=== PATIENT | male | born 1975 | race Caucasian/White ===

== ENCOUNTER 2017-10-19 17:17 | Inpatient (IN) ==
[2017-10-19] MEDS ORDERED: *HR* Morphine 2 MG/ML SYRINGE IVP ONE (17:43)
[2017-10-19] MEDS ORDERED: 0.9 % Sodium Chloride 1,000 ML IVC ONE (17:43)
[2017-10-19] MEDS ORDERED: Ondansetron 4 MG/2 ML VIAL IVP ONE (17:43)
--- NOTE | 2017-10-19 17:46 | Emergency Department Note ---
Disposition Clinical Impression: Diverticulitis Disposition: Admitted As Inpatient Condition: Good Referrals: NONE,PCP [Primary Care Provider] - Forms: ED Satisfaction Letter, Work/School Release Time of Disposition: 19:50 Abdominal Pain HPI - General Chief Complaint: ED Abdominal Pain Stated Complaint: got diverticulitis Time Seen by Provider: 10/19/17 17:40 Source: patient Mode of arrival: ambulatory Limitations: no limitations Nursing Notes Reviewed: Yes Vital Signs Reviewed: Yes - History of Present Illness HPI Narrative: 42-year-old white male with a history of diverticulitis presents with left lower quadrant abdominal pain that started on Thursday. He developed nausea and vomiting on Thursday. He vomited multiple times and chest today. He felt chilled, no documented fever. He has had a previous history of diverticulitis about 5 or 6 months ago. He has had a previous cholecystectomy and appendectomy. He had a normal bowel movement 2 days ago. No diarrhea. Pt Subjective Complaint: abdominal pain Onset (ago): day(s) (2) Consistency: constant Location: LLQ Pain Severity: severe Pain Scale: 9 Quality: sharp Radiation: none Migration to: no migration Improves with: nothing Worsens with: nothing Context: other (History of diverticulitis) Associated symptoms: Reports: nausea, vomiting Treatments prior to arrival: none - Related Data Home Medications Medication Instructions Recorded Confirmed No Known Home Drugs 10/19/17 10/19/17 Allergies Allergy/AdvReac Type Severity Reaction Status Date / Time No Known Allergies Allergy Verified 08/06/17 10:14 All systems ED: reviewed and negative except as stated. Constitutional: Reports: chills. Denies: fever Cardiovascular: Denies: chest pain Respiratory: Denies: cough, dyspnea Gastrointestinal: Reports: abdominal pain, nausea, vomiting. Denies: diarrhea, constipation Genitourinary: Denies: urgency, dysuria, frequency Musculoskeletal: Denies: back pain Abdominal Pain PMH - Past Medical History Medical history: Reports: kidney stones Male Surgical History: Reports: appendectomy, cholecystectomy Psychiatric history: Reports: no psych history - Social History Smoking status: Never smoker Alcohol use: Reports: none Drug use: Reports: none Physical Exam - General Limitations: no limitations General appearance: alert, in no apparent distress - Head Head exam: atraumatic, normocephalic - Eye Eye exam: Present: PERRL, EOMI. Absent: scleral icterus, conjunctival injection - ENT ENT exam: normal oropharynx, mucous membranes moist, TM's normal bilaterally - Neck Neck exam: Present: normal inspection, full ROM, trachea midline. Absent: lymphadenopathy - Respiratory Respiratory exam: Present: normal lung sounds bilaterally. Absent: respiratory distress, wheezes - Cardiovascular Cardiovascular exam: Present: regular rate, normal rhythm, normal heart sounds - Abdominal Exam Abdominal exam: Present: soft, tenderness, guarding, normal bowel sounds. Absent: distention, rebound, organomegaly, mass Abdominal tenderness: Present: LLQ, moderate - Extremities Exam Extremities exam: Present: normal inspection, full ROM, normal capillary refill. Absent: tenderness - Neurological Exam Neurological exam: Present: alert, oriented X3, normal gait - Psychiatric Psychiatric exam: Present: normal affect, normal mood - Skin Skin exam: Present: warm, dry, intact, normal color Course - Reevaluation(s) Reevaluation #1: Patient's nausea is improved. His tenderness and pain have decreased. He has uncomplicated diverticulitis on the CT. His white blood cell count is mildly elevated. I feel he will benefit from IV antibiotic therapy to make sure he can tolerate by mouth. I discussed with the patient. He is agreeable. I spoke with Dr. Jimenez. He has accepted patient for observation admission. Time: 19:50 Vital Signs Temperature 98.3 F 10/19/17 17:17 Pulse Rate 82 10/19/17 17:17 Respiratory Rate 16 10/19/17 17:17 Blood Pressure 145/101 10/19/17 17:17 O2 Sat by Pulse Oximetry 99 10/19/17 17:17 Temperature 98.3 F 10/19/17 17:17 Pulse Rate 93 10/19/17 19:24 Respiratory Rate 18 10/19/17 19:24 Blood Pressure 124/82 10/19/17 19:24 O2 Sat by Pulse Oximetry 98 10/19/17 19:24 Oxygen Delivery Oxygen Delivery Room Air Abdominal Pain - MDM Narrative Medical decision making narrative: Differential includes but is not limited to inguinal hernia, diverticulitis, pyelonephritis, ureterolithiasis, small bowel obstruction, urinary tract infection. - Medical Records Medical records reviewed: Yes I reviewed the patient's medical records. - Lab Data Lab results reviewed: Yes I reviewed the patient's lab results. Result diagrams: 10/19/17 17:51 10/19/17 17:51 Lab Results 10/19/17 10/19/17 Range/Units 17:51 17:51 WBC 11.3 H (4.3-11.1) K/mcL RBC 4.76 (4.19-5.50) M/mcL Hgb 15.1 (12.9-16.9) g/dL Hct 41.7 (37.5-50.1) % MCV 87.6 (83.0-100.0) fL MCH 31.7 (28.0-33.3) pg MCHC 36.2 H (31.6-35.5) g/dL RDW 11.3 L (11.5-14.5) % Plt Count 273 (140-400) K/mcL MPV 10.9 (9.4-12.4) fL Immature Gran % 0.4 (0-4) % Seg Neutrophils % 84.4 % Lymphocytes % 8.7 % Monocytes % 4.1 % Eosinophils % 1.9 % Basophils % 0.5 % Neutrophils # 9.5 H (1.6-8.9) K/mcL Lymphocytes # 1.0 (0.6-4.6) K/mcL Monocytes # 0.5 (0.0-1.3) K/mcL Eosinophils # 0.2 (0.0-0.6) K/mcL Basophils # 0.1 (0.0-0.2) K/mcL Sodium 145 (136-145) mEq/L Potassium 4.0 (3.5-4.5) mEq/L Chloride 110 H (98-109) mEq/L Carbon Dioxide 25 (19-29) mEq/L BUN 13 (8-26) mg/dL Creatinine 0.93 (0.72-1.25) mg/dL Est GFR ( Amer) > 60 (> 60) Est GFR (Non-Af Amer) > 60 (> 60) BUN/Creatinine Ratio 14 (6-26) Glucose 98 (70-99) mg/dL Calculated Osmolality 300 (280-300) Calcium 9.5 (8.6-10.8) mg/dL Total Bilirubin 0.5 (0.2-1.2) mg/dL AST 20 (5-34) Units/L ALT 20 (0-55) Units/L Alkaline Phosphatase 80 (38-126) Units/L Serum Total Protein 7.5 (6.0-8.3) g/dL Albumin 3.7 (3.5-5.0) g/dL Globulin 3.8 H (2.4-3.5) g/dL Albumin/Globulin Ratio 1.0 L (1.1-2.2) Lipase 27 (8-78) Units/L - Radiology Data Radiology results reviewed: Yes I reviewed the patient's radiology results. Impressions Abdomen/Pelvis CT 10/19/17 17:43 IMPRESSION: 1. Diverticulosis with early developing uncomplicated diverticulitis involving the sigmoid colon. 2. Bilateral punctate nonobstructive urolithiasis. D/ / Maikel Marlow MD / Maikel Marlow MD Interpreting Provider: Maikel Marlow MD
[2017-10-19 18:08] LABS: Basophils # 0.1 K/mcL (0.0-0.2); Basophils % 0.5 %; Eosinophils # 0.2 K/mcL (0.0-0.6); Eosinophils % 1.9 %; Hematocrit 41.7 % (37.5-50.1); Hemoglobin 15.1 g/dL (12.9-16.9); Immature Granulocytes % 0.4 % (0-4); Lymphocytes % 8.7 %; Mean Corpuscular HGB Conc 36.2 g/dL (31.6-35.5); Mean Corpuscular Hemoglobin 31.7 pg (28.0-33.3); Mean Corpuscular Volume 87.6 fL (83.0-100.0); Mean Platelet Volume 10.9 fL (9.4-12.4); Monocytes # 0.5 K/mcL (0.0-1.3); Monocytes % 4.1 %; Neutrophils # 9.5 K/mcL (1.6-8.9); Platelet Count 273 K/mcL (140-400); Red Blood Count 4.76 M/mcL (4.19-5.50); Red Cell Distribution Width 11.3 % (11.5-14.5); Segmented Neutrophils % 84.4 %
[2017-10-19 18:32] LABS: Alanine Aminotransferase 20 Units/L (0-55); Albumin 3.7 g/dL (3.5-5.0); Alkaline Phosphatase 80 Units/L (38-126); Aspartate Amino Transferase 20 Units/L (5-34); BUN/Creatinine Ratio 14 (6-26); Bilirubin,Total 0.5 mg/dL (0.2-1.2); Blood Urea Nitrogen 13 mg/dL (8-26); Calcium 9.5 mg/dL (8.6-10.8); Carbon Dioxide 25 mEq/L (19-29); Chloride 110 mEq/L (98-109); Globulin 3.8 g/dL (2.4-3.5); Glucose 98 mg/dL (70-99); Lipase 27 Units/L (8-78); Osmolality,Calculated 300 (280-300); Sodium 145 mEq/L (136-145); Total Protein 7.5 g/dL (6.0-8.3); eGFR For African Americans > 60 (> 60); eGFR For Non-African Americans > 60 (> 60)
[2017-10-19] MEDS ORDERED: *HR* Morphine 2 MG/ML SYRINGE ONE (18:38)
[2017-10-19] MEDS ORDERED: MetroNIDAZOLE 500 MG/100 ML 500 MG/100 ML BAG IVPB ONE (19:31)
[2017-10-19] MEDS ORDERED: *HR* Morphine 2 MG/ML SYRINGE IVP PRN ×2 (19:46→20:31)
[2017-10-19] MEDS ORDERED: Naloxone 0.4 MG/ML INJ IVP PRN (20:31)
[2017-10-19] MEDS: 0.9 % Sodium Chloride 1,000 ML IVC SCH (21:58)
[2017-10-20] MEDS: *HR* Morphine 2 MG/ML SYRINGE IVP PRN ×9 (00:01→22:57)
[2017-10-20] MEDS: MetroNIDAZOLE 500 MG/100 ML 500 MG/100 ML BAG IVPB SCH ×4 (04:36→12:47)
[2017-10-20] MEDS: *HR* Enoxaparin 40 MG/0.4 ML SYRINGE SQ SCH (06:14)
[2017-10-20] MEDS: 0.9 % Sodium Chloride 1,000 ML IVC SCH (06:21)
--- NOTE | 2017-10-20 12:45 | Internal Med History&Physical ---
Date of Encounter: 10/20/17 Time of Encounter: 12:25 Assessment and Plan (1) Diverticulitis Current visit: Yes Status: Acute He has been started on IV Cipro and Flagyl. Diet will be increased as tolerated. Internal Medicine - H&P: HPI Chief complaint: Abdominal pain, vomiting, diarrhea Admitted From: Emergency Dept Plans for Post Hospital Care: Home History of present illness: Mr. Linton is a 42 year old male who came to the hospital stating he had onset of abdominal pain approximately one week earlier. He had vomiting and diarrhea onset October 17. There was no visible blood. He had no significant fevers or chills. He was evaluated in emergency room with CT scan showing probable early uncomplicated diverticulitis. He was admitted to [facility] floor for ongoing care needs. He reports several previous episodes of diverticulitis. He was hospitalized at [facility] June 2017 with colitis following treatment for diverticulitis. He has not seen a ski guide states he has an appointment November [address] Santiago. He denies colonoscopy or barium enema. He denies disorders of his liver or exocrine pancreas. He has had cholecystectomy and appendectomy. Past Med Surg Social Fam HX - Past Medical History Medical history: kidney stones Psychiatric history: no psych history - Past Surgical History Surgical History: appendectomy, cholecystectomy - Social History Smoking Status: Never smoker Smokeless Tobacco Status: No Alcohol use: none Drug use: none - Family History Mother Living Status: Still Living Father Living Status: Hx Family Respiratory Disorders: Yes (copd, emphysema) Hx Family Cancer: Yes Internal Medicine - H&P: Meds No Known Home Drugs 10/19/17 [History] 3 Allergy/AdvReac Type Severity Reaction Status Date / Time No Known Allergies Allergy Verified 08/06/17 10:14 All Systems PM: A 10-system review of systems was performed and is negative for pertinent findings except as documented above in the HPI. Review of systems: Gen.: His weight has decreased from 77.111 kg on 07/03/2017 to 72.575 kg now. This is unintentional. Cardiovascular: He denies [place] hypertension heart failure angina DVT or pulmonary embolus Respiratory: He states he is a lifelong nonsmoker and has no known chronic lung disease GI: As per history of present illness : He had kidney stones approximately 2012. He denies other kidney bladder or prostate disorders Neurologic: He denies large distribution strokes or seizures. Endocrine: He denies diabetes thyroid disease or hyperlipidemia Hematology/oncology: He denies blood disorders cancers or anemia Psychiatric: He denies anxiety depression or other mental health issues [place] skeletal: He denies arthritis gout other bone joint or muscle disorders. - Constitutional Vitals: Temp Pulse Resp BP Pulse Ox 98.4 F 52 16 104/71 96 10/20/17 11:48 10/20/17 11:48 10/20/17 11:48 10/20/17 11:48 10/20/17 11:48 Exam: Gen.: He is a well-developed well-nourished male lying in bed who appears in mild pain HEENT: Head is atraumatic and normal systolic. Eyes: EOMI. There is no scleral icterus. Mouth: Mucosa is moist. Neck: Supple and nontender. There is no thyromegaly or adenopathy noted. Heart: Regular without murmurs gallops or ectopics Lungs: No wheezes or crackles heard. Abdomen: He has tenderness in the left lower quadrant to mild palpation. No masses or guarding noted. Extremities: There is no cyanosis edema or clubbing noted. Dorsalis pedis and posttibial pulses are 1-2 over 2 bilaterally. Neurologic: Mental status: He is talkative and a good historian. Cranial nerves : Smile is symmetric. Forehead wrinkles bilaterally. Tongue protrudes midline. EOMI. Motor: There is no pronator drift. Cerebellar: Finger to nose is intact bilaterally. Skin: Warm and dry Internal Med - H&P Results - Labs CBC & Chem 7: 10/19/17 17:51 10/19/17 17:51
[2017-10-20] MEDS: Ondansetron 4 MG/2 ML VIAL IVP PRN ×2 (14:01→21:06)
[2017-10-21] MEDS: *HR* Morphine 2 MG/ML SYRINGE IVP PRN ×10 (00:57→23:09)
[2017-10-21] MEDS: MetroNIDAZOLE 500 MG/100 ML 500 MG/100 ML BAG IVPB SCH ×4 (03:26→21:04)
[2017-10-21 06:04] LABS: Basophils # 0.1 K/mcL (0.0-0.2); Eosinophils # 0.4 K/mcL (0.0-0.6); Eosinophils % 7.7 %; Hematocrit 37.7 % (37.5-50.1); Hemoglobin 13.4 g/dL (12.9-16.9); Immature Granulocytes % 0.2 % (0-4); Lymphocytes # 1.2 K/mcL (0.6-4.6); Lymphocytes % 22.8 %; Mean Corpuscular HGB Conc 35.5 g/dL (31.6-35.5); Mean Corpuscular Hemoglobin 31.3 pg (28.0-33.3); Mean Corpuscular Volume 88.1 fL (83.0-100.0); Monocytes # 0.4 K/mcL (0.0-1.3); Monocytes % 8.4 %; Neutrophils # 3.1 K/mcL (1.6-8.9); Platelet Count 233 K/mcL (140-400); Red Blood Count 4.28 M/mcL (4.19-5.50); Red Cell Distribution Width 11.4 % (11.5-14.5); Segmented Neutrophils % 59.9 %
[2017-10-21 06:24] LABS: BUN/Creatinine Ratio 10 (6-26); Blood Urea Nitrogen 9 mg/dL (8-26); Calcium 8.9 mg/dL (8.6-10.8); Carbon Dioxide 26 mEq/L (19-29); Chloride 110 mEq/L (98-109); Glucose 83 mg/dL (70-99); Magnesium 2.1 mg/dL (1.6-2.6); Osmolality,Calculated 296 (280-300); Potassium 3.4 mEq/L (3.5-4.5); Sodium 144 mEq/L (136-145); eGFR For African Americans > 60 (> 60); eGFR For Non-African Americans > 60 (> 60)
[2017-10-21] MEDS: *HR* Enoxaparin 40 MG/0.4 ML SYRINGE SQ SCH (06:28)
[2017-10-21] MEDS: Ondansetron 4 MG/2 ML VIAL IVP PRN ×2 (06:28→10:52)
--- NOTE | 2017-10-21 10:48 | Internal Med Progress Note ---
Date of Encounter: 10/21/17 Time of Encounter: 10:25 - Assessment and plan (1) Diverticulitis Current Visit: Yes Status: Acute Assessment and plan: October 21. Continue Flagyl and Cipro IV with lactobacillus. Will continue full liquid diet. Anticipate discharge home tomorrow if stable. - Subjective Interval history: October 21. He does not feel improved. - Constitutional Vitals: Temp Pulse Resp BP Pulse Ox 98.3 F 61 18 94/57 97 10/21/17 10:29 10/21/17 10:29 10/21/17 10:29 10/21/17 10:29 10/21/17 10:29 Exam: He is resting in bed and does not appear to be in acute distress. His abdomen still has tenderness in the left lower quadrant. Bowel sounds are present. I reviewed his medications and lab results. Internal Medicine: Result - Labs CBC & Chem 7: 10/21/17 04:57 10/21/17 04:57 Labs: Short CBC 10/21/17 Range/Units 04:57 WBC 5.2 D (4.3-11.1) K/mcL Hgb 13.4 D (12.9-16.9) g/dL Hct 37.7 (37.5-50.1) % Plt Count 233 (140-400) K/mcL Neutrophils # 3.1 (1.6-8.9) K/mcL BMP 10/21/17 04:57 Sodium 144 Potassium 3.4 L Chloride 110 H Carbon Dioxide 26 BUN 9 Creatinine 0.93 Glucose 83 Calcium 8.9 Consult Discharge Plan - Plan Referrals: NONE,PCP [Primary Care Provider] - 1 week
[2017-10-21] MEDS: 0.45 % Sodium Chloride w/KCl 20 MEQ/1,000 ML MLS IVC SCH (13:17)
[2017-10-22] MEDS: MetroNIDAZOLE 500 MG/100 ML 500 MG/100 ML BAG IVPB SCH ×2 (01:42→08:53)
[2017-10-22] MEDS: *HR* Morphine 2 MG/ML SYRINGE IVP PRN ×3 (01:42→08:51)
[2017-10-22] MEDS: *HR* Enoxaparin 40 MG/0.4 ML SYRINGE SQ SCH (04:43)
[2017-10-22 06:00] LABS: BUN/Creatinine Ratio 11 (6-26); Blood Urea Nitrogen 10 mg/dL (8-26); Calcium 8.8 mg/dL (8.6-10.8); Carbon Dioxide 25 mEq/L (19-29); Chloride 110 mEq/L (98-109); Glucose 84 mg/dL (70-99); Osmolality,Calculated 296 (280-300); Potassium 3.7 mEq/L (3.5-4.5); Sodium 144 mEq/L (136-145); eGFR For African Americans > 60 (> 60); eGFR For Non-African Americans > 60 (> 60)
[2017-10-22] MEDS: 0.45 % Sodium Chloride w/KCl 20 MEQ/1,000 ML MLS IVC SCH (07:25)
[2017-10-22 08:59] VITALS: BP 96/61
--- NOTE | 2017-10-22 09:29 | Discharge Summary ---
Date of Encounter: 10/22/17 Time of Encounter: 09:15 - Discharge Diagnosis (1) Diverticulitis Priority: Primary Status: Acute - Discharge Medications Prescriptions: Ciprofloxacin HCl [Cipro] 500 mg PO BID #6 tablet Lactobacillus [Culturelle] 1 each PO BID #6 cap.sprink metroNIDAZOLE [Flagyl] 500 mg PO Q8H #9 tablet Home Medications: Ciprofloxacin HCl [Cipro] 500 mg PO BID #6 tablet 10/22/17 [Rx] Lactobacillus [Culturelle] 1 each PO BID #6 cap.sprink 10/22/17 [Rx] metroNIDAZOLE [Flagyl] 500 mg PO Q8H #9 tablet 10/22/17 [Rx] Allergies/Adverse Reactions: 3 Allergy/AdvReac Type Severity Reaction Status Date / Time No Known Allergies Allergy Verified 08/06/17 10:14 Date of admission: 10/21/17 16:12 Primary care physician: PCP NONE - Patient Status Disposition: Home, Self-Care Condition: Good Functional capacity at discharge: independent ambulation Overall status at discharge: patient is progressing back to baseline - Discharge Instructions Follow Up With: NONE,PCP [Primary Care Provider] - 1 week - Diet and Activity Activity: resume usual activities as tolerated Diet: advance to your usual diet Hospital course: Mr. Linton is a 42 year old male who came to the hospital stating he had onset of abdominal pain approximately one week earlier. He had vomiting and diarrhea onset October 17. There was no visible blood. He had no significant fevers or chills. He was evaluated in emergency room with CT scan showing probable early uncomplicated diverticulitis. He was admitted to [facility] floor for ongoing care needs. Initial orders were written by the emergency room physician. I saw him on October 20 and performed the history and physical. He was started on IV Cipro and Flagyl. Diet was increased as tolerated. Leukocytosis and left shift resolved by the day after admission. He had clinical improvement and lessening of the abdominal pain. He remained afebrile last the 24 hours hospitalization. On October 22 I felt he was stable for discharge home. He will continue with antibiotic and probiotic for 3 additional days at discharge. He will follow with a PCP within one week. - Time Spent with Patient Total time spent providing and/or coordinating discharge services: - Constitutional Vitals: Temp Pulse Resp BP Pulse Ox 98.4 F 75 16 96/61 99 10/22/17 06:55 10/22/17 06:55 10/22/17 06:55 10/22/17 06:55 10/22/17 06:55 - VTE Reasons for not Prescribing Prophylaxis: Treatment not Indicated - Low risk for VTE
== END 2017-10-22 12:15 | disposition home or self-care (01) | DRG 244 ==
LOC: EMEROOPIK 17:17 → INPPIK 17:17
PROVIDERS: ADMIT Internal Medicine; ATTEND Internal Medicine